=== PATIENT | female | born 1960 | race Caucasian/White ===

== ENCOUNTER 2019-01-25 11:54 | Emergency (ER) | payer MEDICAID, OTHER ==
[~2019-01-25] VITALS: Ht 175.3 cm; Wt 83.0 kg
[2019-01-25 11:58] VITALS: BP 148/88
--- NOTE | 2019-01-25 13:33 | NUR ---
FROM LOBBY TO ROOM AT THIS TIME
== END 2019-01-25 14:00 | disposition home or self-care (01) ==
LOC: ED 13:54
DX: B34.9 Viral infection, unspecified (principal); I10 Essential (primary) hypertension; F17.210 Nicotine dependence, cigarettes, uncomplicated
CPT/HCPCS: 71046; 99283

== ENCOUNTER 2019-02-05 13:14 | Emergency (ER) | payer MEDICAID ==
[~2019-02-05] VITALS: Ht 170.2 cm; Wt 81.6 kg
[2019-02-05 13:20] VITALS: BP 127/76
[2019-02-05] MEDS ORDERED: NALOXONE 1 MG/ML, 2ML ONE (13:58)
== END 2019-02-05 14:10 | disposition home or self-care (01) ==
LOC: ED 13:50
DX: J32.0 Chronic maxillary sinusitis (principal); I10 Essential (primary) hypertension; Z77.22 Contact with and (suspected) exposure to environmental tobacco smoke (acute) (chronic)
CPT/HCPCS: 99283

== ENCOUNTER 2019-02-16 10:19 | Emergency (ER) | payer MEDICAID ==
[~2019-02-16] VITALS: Ht 177.8 cm; Wt 83.0 kg
--- NOTE | 2019-02-16 10:53 | NUR ---
PT REPORTS VAG BLEED TODAY WHEN SHE WIPPED. STATED THAT THIS HAPPENED 2 YEARS AGO. PT USED A DOUCH A COUPLE DAYS AGO AND IT WAS PAINFUL. PT AMBULATED TO BATHROOM WITH STEADY GAIT. PT IS ALERT, ORIENTED, WITH NAD.
[2019-02-16 11:14] LABS: MICROSCOPIC AUTO
[2019-02-16 11:15] LABS: BASOPHILS # (AUTO) 0.04 x10^3/uL (0-0.1); BASOPHILS % (AUTO) 0 % (0-1); EOSINOPHILS # (AUTO) 0.12 x10^3/uL (0-0.4); EOSINOPHILS % (AUTO) 1 % (1-7); LYMPHOCYTES # (AUTO) 3.13 x10^3/uL (1-3.4); LYMPHOCYTES % (AUTO) 31 % (22-44); MD NO; MEAN CORPUSCULAR HEMOGLOBIN 31.5 pg (27.0-34.8); MEAN CORPUSCULAR HGB CONC 35.3 g/dL (32.4-35.8); MEAN CORPUSCULAR VOLUME 89.4 fL (80-100); MEAN PLATELET VOLUME 11.4 fL (7.4-10.4); MONOCYTES # (AUTO) 0.74 x10^3/uL (0.2-0.8); MONOCYTES % (AUTO) 7 % (2-9); NEUTROPHILS # (AUTO) 5.98 x10^3/uL (1.8-6.8); NEUTROPHILS % (AUTO) 60 % (42-75); PLATELET COUNT 200 x10^3/uL (130-400); RED BLOOD COUNT 5.13 x10^6/uL (3.82-5.3); RED CELL DISTRIBUTION WIDTH 12.2 % (9.6-15.2)
[2019-02-16 11:17] LABS: ALBUMIN 3.9 g/dL (3.4-5.0); ANION GAP 6 mmol/L (5-15); CHLORIDE 101 mmol/L (98-107); CREATININE 0.94 mg/dL (0.55-1.02)
[2019-02-16 11:18] LABS: CULTURE INDICATED? YES
[2019-02-16 11:34] LABS: CLUE CELLS NONE SEEN (NONE SEEN); WET PREP WBCS MODERATE (FEW)
[2019-02-16] MEDS ORDERED: POTASSIUM CHLORIDE 20 MEQ TAB.ER.PRT ONE (11:38)
--- NOTE | 2019-02-16 11:51 | NUR ---
PT ONLY ABLE TO GET DOWN ONE POTASSIUM PILL.
--- NOTE | 2019-02-16 11:56 | NUR ---
PA INFORMED THAT PT WAS ONLY ABLE TO GET DOWN ONE POTASSIUM PILL.
[2019-02-16] MEDS ORDERED: POTASSIUM CHLORIDE 20 MEQ TAB.ER.PRT PO ONE (12:00)
[2019-02-16 12:02] VITALS: BP 121/80
--- NOTE | 2019-02-16 12:17 | NUR ---
Patient given discharge instructions and they have confirmed that they understand the instructions. Patient ambulatory with steady gait.
== END 2019-02-16 12:19 | disposition home or self-care (01) ==
LOC: ED 11:40
DX: N30.01 Acute cystitis with hematuria (principal); E87.6 Hypokalemia; I10 Essential (primary) hypertension; F17.200 Nicotine dependence, unspecified, uncomplicated
CPT/HCPCS: 36415; 80048; 81001; 82040; 85025; 87077; 87086; 87147; 87186; 87210; 87808; 99283

== ENCOUNTER 2020-01-28 11:26 | Emergency (ER) | payer SELFPAY ==
[2020-01-28 11:28] VITALS: BP 163/90
== END 2020-01-28 12:21 | disposition home or self-care (01) ==
LOC: ED 12:00
DX: J01.00 Acute maxillary sinusitis, unspecified (principal)
CPT/HCPCS: 99283